=== PATIENT | female | born 1995 | race Caucasian/White ===

== ENCOUNTER 2020-07-06 21:40 | Emergency (ER) | payer SELFPAY | END 2020-07-07 02:11 | disposition home or self-care (01) | LOC: BURERS 21:40 | DX: F43.0 Acute stress reaction (principal); F41.9 Anxiety disorder, unspecified; F12.10 Cannabis abuse, uncomplicated; F17.210 Nicotine dependence, cigarettes, uncomplicated | CPT/HCPCS: 99283 ==

== ENCOUNTER 2023-12-18 05:03 | Emergency (ER) | payer SELFPAY ==
[2023-12-18] MEDS ORDERED: Acetaminophen 500 MG TAB ONE (05:46)
[2023-12-18] MEDS ORDERED: Lidocaine 1% PF 5 ML VIAL ONE (11:09)
== END 2023-12-18 05:51 | disposition home or self-care (01) ==
LOC: BURERS 05:03
DX: K04.7 Periapical abscess without sinus (principal); K02.9 Dental caries, unspecified; F17.210 Nicotine dependence, cigarettes, uncomplicated
CPT/HCPCS: 64400